=== PATIENT | male | born 1970 | race Caucasian/White ===

== ENCOUNTER 2018-03-26 12:26 | Emergency (ER) | payer OTHER ==
[2018-03-26 12:40] VITALS: BMI 35.4
--- NOTE | 2018-03-26 12:49 | PDOC ---
History of Present Illness - General Stated Complaint: OVERDOSE Time Seen by Provider: 03/26/18 12:34 - History of Present Illness Initial Comments: 03/26/18 12:36 47 yo M with h/o Heroin use on methadone maintenance (15 mg) BIBA with suspected opioid overdose. Pt. given Narcan x 2 by EMS after found unresponsive in [facility]'s bathroom, with finding of labored breathing, pinpoint pupils, decreased respiratory rate. Patient resp status and mental status improved following Narcan. VSS. Patient incorporative with history. Nursing staff reports patient agitated because he cannot find his personal belongings. Denies F/C, N/V, CP, SOB, abdominal pain, diarrhea, constipation, urinary complaints, weakness, lightheadedness, sensory changes. PMHx: as noted above ROS: as noted above. SHx: Patient reports whiskey and xanax intake today of unknown quantity. Denies illicit drug use today, but with h/o IVDA. Allergies: NKDA Past History - Past Medical History Allergies/Adverse Reactions: Allergies Allergy/AdvReac Type Severity Reaction Status Date / Time No Known Allergies Allergy Verified 03/26/18 12:35 Home Medications: Ambulatory Orders Unobtainable 03/26/18 - Suicide/Smoking/Psychosocial Hx Smoking History: Unknown if ever smoked Cigars Per Day: 0 Hx Alcohol Use: Yes Substance Use Type: Heroin Review of Systems - Review of Systems Comments:: 03/26/18 12:37 GENERAL/CONSTITUTIONAL: No fever or chills. No weakness. HEAD, EYES, EARS, NOSE AND THROAT: No change in vision. No ear pain or discharge. No sore throat. CARDIOVASCULAR: No chest pain or shortness of breath RESPIRATORY: No cough, wheezing, or hemoptysis. GASTROINTESTINAL: No nausea, vomiting, diarrhea or constipation. GENITOURINARY: No dysuria, frequency, or change in urination. MUSCULOSKELETAL: No joint or muscle swelling or pain. No neck or back pain. SKIN: No rash NEUROLOGIC: No headache, vertigo, loss of consciousness, or change in strength/ sensation. ENDOCRINE: No increased thirst. No abnormal weight change HEMATOLOGIC/LYMPHATIC: No anemia, easy bleeding, or history of blood clots. ALLERGIC/IMMUNOLOGIC: No hives or skin allergy. *Physical Exam - Physical Exam Comments: 03/26/18 12:37 GENERAL: Awake, alert, and fully oriented, in no acute distress HEAD: No signs of trauma, normocephalic, atraumatic EYES: PERRLA, Pupils 4-5 mm, EOMI, sclera anicteric, conjunctiva clear ENT: Auricles normal inspection, hearing grossly normal, nares patent, oropharynx clear without exudates. Moist mucosa NECK: Normal ROM, supple, no lymphadenopathy, JVD, or masses LUNGS: No distress, speaks full sentences, clear to auscultation bilaterally HEART: Regular rate and rhythm, normal S1 and S2, no murmurs, rubs or gallops, peripheral pulses normal and equal bilaterally. ABDOMEN: Soft, nontender, normoactive bowel sounds. No guarding, no rebound. No masses EXTREMITIES : Normal inspection, Normal range of motion, no edema. No clubbing or cyanosis. NEUROLOGICAL: Uncooperative with physical exam. Cranial nerves II through XII grossly intact. Normal speech, no focal sensorimotor deficits. SKIN: Warm, Dry, normal turgor, no rashes or lesions noted Medical Decision Making - Medical Decision Making 03/26/18 12:55 47 yo M with h/o Heroin use on methadone maintenance (15 mg) BIBA with suspected opioid overdose, after found unresponsive in [facility] bathroom. Received 2 doses of Narcan with improvement in respiratory status. VSS, AF, A&O , NAD ,GCS 15. Will assess for electrolyte abnml, toxic or metabolic derangements,acid-base disturbances, or underlying infection. No evidence of head trauma/injury, or c-spine injury. Will continue to hold for sobriety. ED Course: Patient continually refuses labs. 03/26/18 13:36 CXR: No acute pathology 03/26/18 14:17 EKG: NSR with absent VIC, STD, or TWI. Nml interval duration and axis. 03/26/18 15:59 Patient Sober, A&Ox3, VSS, and ready for d/c with return precautions. Advised to f/u with PMD. *DC/Admit/Observation/Transfer Diagnosis at time of Disposition: Intoxication, Heroin use - Referrals Referrals: Corby Gill [Primary Care Provider] - - Patient Instructions Printed Discharge Instructions: DI for Alcohol Abuse Additional Instructions: Please return to the emergency department with any new or worsening symptoms or concerns. Please follow up with your primary care physician within 72 hours. - Post Discharge Activity - Attestations Physician Attestion: 03/26/18 12:37 I attest to the information provided in this note.
--- NOTE | 2018-03-26 13:51 | PDOC ---
Attending Attestation - Resident Resident Name: Toño Du - ED Attending Attestation I have performed the following: I have examined & evaluated the patient, The case was reviewed & discussed with the resident, I agree w/resident's findings & plan, Exceptions are as noted - HPI HPI: 47 yo M history substance abuse, on methadone, presents with AMS. He was found in a bathroom by police, given narcan x2 prior to arrival. He states that he used to use heroin, but lately he has been using benzodiazepines. He combined xanax with alcohol this morning. He denies any complaints at present. - Physicial Exam PE: GENERAL: Sleeping. Awakens to voice. Answers questions. HEAD: No signs of trauma EYES: PERRLA, EOMI, sclera anicteric, conjunctiva clear ENT: Auricles normal inspection, hearing grossly normal, nares patent, oropharynx clear without exudates. Moist mucosa NECK: Normal ROM, supple, no lymphadenopathy, JVD, or masses LUNGS: Breath sounds equal, clear to auscultation bilaterally. No wheezes, and no crackles HEART: Regular rate and rhythm, normal S1 and S2, no murmurs, rubs or gallops ABDOMEN: Soft, nontender, normoactive bowel sounds. No guarding, no rebound. No masses EXTREMITIES: Normal range of motion, no edema. No clubbing or cyanosis. No cords, erythema, or tenderness NEUROLOGICAL: Cranial nerves II through XII grossly intact. Slurred speech. Motor and sensation intact. SKIN: Warm, Dry, normal turgor, no rashes or lesions noted. - Medical Decision Making Pt presents with AMS after using xanax and alcohol. He has refused labs in ED, however, they are not clinically necessary at present. Will continue to monitor him until he is clinically sober.
[2018-03-26 15:11] VITALS: BP 135/80; PULSE 89; TEMP 98.3
--- NOTE | 2018-03-26 22:02 | EKG ---
Test Reason : Blood Pressure : / mmHG Vent. Rate : 071 BPM Atrial Rate : 071 BPM P-R Int : 174 ms QRS Dur : 100 ms QT Int : 396 ms P-R-T Axes : 041 -04 019 degrees QTc Int : 430 ms POOR DATA QUALITY, INTERPRETATION MAY BE ADVERSELY AFFECTED NORMAL SINUS RHYTHM MINIMAL VOLTAGE CRITERIA FOR LVH, MAY BE NORMAL VARIANT BORDERLINE ECG WHEN COMPARED WITH ECG OF 07-SEP-2003 13:39, NO SIGNIFICANT CHANGE WAS FOUND Confirmed by SAIDA GAVIN MD ([id number]) on 03/26/2018 10:01:56 PM Referred By: Confirmed By:SAIDA GAVIN MD
== END 2018-03-26 17:31 | disposition home or self-care (01) ==
LOC: JER 12:26
DX: F10.120 Alcohol abuse with intoxication, uncomplicated (principal); F13.10 Sedative, hypnotic or anxiolytic abuse, uncomplicated; F11.20 Opioid dependence, uncomplicated
CPT/HCPCS: 71045-TC-FY; 93005; 93010; 99285-25